=== PATIENT | male | born 1995 | race Caucasian/White ===

== ENCOUNTER 2019-05-11 09:28 | Emergency (ER) | payer OTHER ==
[~2019-05-11 09:28] MED LIST: ARIP15TA9 PO; FLU10 GT; IBUP-136 PO; NAP250 PO; OXYC-865 PO
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
[2019-05-11] MEDS ORDERED: HYDR10TA3 PO (09:36)
[2019-05-11 10:00] VITALS: BP 125/75
--- NOTE | 2019-05-11 10:22 | RADIOLOGY IMAGING REPORT ---
FACILITY: [facility] [place] PATIENT NAME: Agustin Willis : 1995 MR: [id number] V: [id number] EXAM DATE: ORDERING PHYSICIAN: JUMANA GARCIA TECHNOLOGIST: Location: [facility] Patient: Agustin Willis : 1995 Visit/Account:[id number] Date of Sevice: 05/11/2019 KNEE 4 VIEW LEFT Indication: Left knee pain. Comparison: 07/18/2017. Findings: 4 views of the left knee. Suprapatellar joint effusion. No evidence of acute fracture or dislocation. Postsurgical changes consistent with prior anterior cruciate ligament repair. Impression: Suprapatellar joint effusion with no evidence of acute fracture or dislocation. Report Dictated By: Pelon Alicia MD at 05/11/2019 10:12 AM Report E-Signed By: Pelon Alicia MD at 05/11/2019 10:14 AM WSN:[id number]
[2019-05-11] MEDS ORDERED: IBUP600T22 PO (10:50)
== END 2019-05-11 11:08 | disposition home or self-care (01) ==
LOC: ER 09:54
DX: S89.82XA Other specified injuries of left lower leg, initial encounter (principal)
CPT/HCPCS: 73564; 99283; L1830